=== PATIENT | female | born 1955 | race Caucasian/White ===

== ENCOUNTER 2020-08-04 08:15 | Observation (INO) | payer MEDICARE ==
[2020-08-04 09:04] VITALS: BP 129/75
[2020-08-04 09:06] VITALS: BMI 30.7
[2020-08-04] MEDS ORDERED: Heparin 25,000 units/D5W 500 ML ONE (09:12)
[2020-08-04] MEDS ORDERED: Heparin 10,000 UNITS/ 10 ML VIAL ONE (09:15)
[2020-08-04] MEDS ORDERED: Lidocaine 1% (PF) 30 ML VIAL ONE (09:15)
[2020-08-04] MEDS ORDERED: FLU VACC QS2020-21(65YR UP)/PF 240 MCG/0.7 ML SYRINGE IM ONE (09:15)
[2020-08-04] MEDS ORDERED: Sodium Chloride 0.9% 2,000 ML ONE (09:16)
[2020-08-04] MEDS ORDERED: Sodium Chloride 0.9% 500 ML ONE (09:16)
[2020-08-04] MEDS ORDERED: Fentanyl 100 MCG/2 ML VIAL ONE (10:20)
[2020-08-04] MEDS ORDERED: Protamine Sulfate 50 MG/5 ML VIAL ONE (13:20)
[2020-08-04] MEDS ORDERED: HYDROcodone/Acetaminophen 5/325 mg Tablet PO PRN (13:50)
[2020-08-04] MEDS ORDERED: hydrALAZINE 20 MG/ML VIAL SLOW IVP PRN (13:52)
[2020-08-04] MEDS ORDERED: Benzonatate 100 MG CAP PO PRN (13:52)
[2020-08-04] MEDS ORDERED: Temazepam 15 MG CAP PO PRN (13:52)
[2020-08-04] MEDS ORDERED: Calcium Carbonate 500 MG ChewTAB PO PRN (13:52)
[2020-08-04] MEDS ORDERED: Ondansetron ODT 4 MG TAB PO PRN (13:52)
[2020-08-04] MEDS ORDERED: Cepastat Lozenges 1 LOZ PO PRN (13:52)
[2020-08-04] MEDS ORDERED: Acetaminophen 500 MG TAB PO PRN (13:52)
[2020-08-04] MEDS ORDERED: Apixaban 5 MG TAB PO SCH (21:00)
[2020-08-04] MEDS ORDERED: Diltiazem HCl SR 60 mg Capsule PO SCH (21:00)
[2020-08-04] MEDS ORDERED: ACETAMINOPHEN 325 MG PO SCH (21:00)
[2020-08-04] MEDS ORDERED: Flecainide 50 MG TAB PO SCH (21:00)
[2020-08-05] MEDS ORDERED: Loratadine 10 MG TAB PO SCH (09:00)
[2020-08-05] MEDS ORDERED: Pantoprazole 40 MG GRANULES PACKET PO SCH (09:00)
== END 2020-08-04 18:51 | disposition home or self-care (01) ==
LOC: CSHSDC 08:15 → CSHTELE 16:20
PROVIDERS: ADMIT Internal Medicine Cardiovascular Disease; ATTEND Internal Medicine Cardiovascular Disease
DX: I48.4 Atypical atrial flutter (principal); I48.0 Paroxysmal atrial fibrillation; E78.5 Hyperlipidemia, unspecified; K21.9 Gastro-esophageal reflux disease without esophagitis; F32.9 Major depressive disorder, single episode, unspecified; Z79.899 Other long term (current) drug therapy; Z79.01 Long term (current) use of anticoagulants
CPT/HCPCS: 85347; 93005; 93312; 93613; 93656; 93657; 93662; C1730; C1731; C1732; C1759; C1760; C1894; C2630; 93010; J1644; J2001; J2720; J3010; J7030; J7050

== ENCOUNTER 2021-11-02 09:58 | Outpatient (CLI) | payer MEDICARE ==
[2021-11-02 11:50] LABS: Mean Corpuscular HGB CONC 34.8 g/dL (32.0-36.0); Mean Corpuscular Hemoglobin 34.2 pg (27.0-33.0); Mean Corpuscular Volume 98.4 fl (81.6-98.3); Mean Platelet Volume 9.1 fl (7.4-10.4); Platelet Count 255 10x3/uL (150-450); RBC Distribution Width 12.8 % (11.5-14.5); Red Blood Cell (RBC) Count 4.38 10x6/uL (3.90-5.03); White Blood Cell (WBC) Count 4.2 10x3/uL (3.5-10.5)
[2021-11-02 12:01] LABS: Anion Gap 19 mmol/L (10-20); BUN (Urea Nitrogen) 9 mg/dL (9.8-20.1); Calc. Creatinine Clearance 0 mL/min (70-130); Calcium 9.8 mg/dL (7.8-10.44); Carbon Dioxide 25 mmol/L (23-31); Chloride 104 mmol/L (98-107); Glucose 80 mg/dL (80-115); Potassium 4.7 mmol/L (3.5-5.1); Sodium 143 mmol/L (136-145)
[2021-11-02 12:11] LABS: INR-International Normal Ratio 0.9; Prothrombin Time 10.3 sec (9.5-12.1)
== END 2021-11-02 09:59 | disposition home or self-care (01) ==
LOC: CSHLAB 09:58
PROVIDERS: ATTEND Internal Medicine Cardiovascular Disease
DX: Z01.812 Encounter for preprocedural laboratory examination (principal); Z20.822 Contact with and (suspected) exposure to COVID-19
CPT/HCPCS: 80048; 85027; 85610; U0003; U0005

== ENCOUNTER 2021-11-04 05:50 | Day surgery (SDC) | payer MEDICARE ==
[2021-11-04] MEDS ORDERED: PROPOFOL 20 ML ONE (07:20)
[2021-11-04 10:14] VITALS: TEMP 98.2
== END 2021-11-04 08:08 | disposition home or self-care (01) ==
LOC: CSHSDC 05:50
PROVIDERS: ATTEND Internal Medicine Cardiovascular Disease
PROC: B246ZZ4 Ultrasonography of Right and Left Heart, Transesophageal (ICD-10-PCS; principal; 2021-11-04)
DX: I48.0 Paroxysmal atrial fibrillation (principal); I48.4 Atypical atrial flutter; I51.7 Cardiomegaly; K21.9 Gastro-esophageal reflux disease without esophagitis; Z79.01 Long term (current) use of anticoagulants; Z79.899 Other long term (current) drug therapy; Z88.0 Allergy status to penicillin
CPT/HCPCS: 93312; J2704